=== PATIENT | female | born 2000 ===

== ENCOUNTER 2024-01-14 12:35 | Inpatient (IN) | payer OTHER ==
[~2024-01-14] VITALS: Ht 157.5 cm; Wt 73.5 kg
[2024-01-14 13:24] LABS: AMNISURE ROM TEST POSITIVE
[2024-01-14 14:24] LABS: HEMATOCRIT 40.5 % (35.0-50.0); MCH 31.8 (27-36); MCHC 34.7 g/dl (30-36); MCV 91.9 fl (81-99); RBC 4.4 M/ul (4.3-5.7); RDW 14.1 (10.5-15.0)
[2024-01-14] MEDS ORDERED: fentaNYL citrate 100 MCG/2 ML VIAL IV PRN (14:30)
[2024-01-14] MEDS ORDERED: CALCIUM CARBONATE 500 MG CHEW PO PRN (14:30)
[2024-01-14] MEDS ORDERED: ondansetron HCL 4 MG/2 ML VIAL IV PRN (14:30)
[2024-01-14] MEDS ORDERED: OXYTOCIN/DEXTROSE 5% 20 UNITS/100 ML BAG IV SCH (14:30)
[2024-01-14] MEDS ORDERED: MAGNESIUM HYDROXIDE/AL HYDROX 30 ML CUP PO PRN (14:30)
[2024-01-14] MEDS ORDERED: LACTATED RINGER'S 1,000 ML IV SCH (14:30)
[2024-01-14] MEDS ORDERED: LACTATED RINGER'S 1,000 ML IV PRN (14:30)
[2024-01-14 14:55] LABS: AMPHETAMINES, URINE NEGATIVE (NEGATIVE); BARBITURATES, URINE NEGATIVE (NEGATIVE); BENZODIAZEPINE, URINE NEGATIVE (NEGATIVE); BUPRENORPHINE, URINE NEGATIVE (NEGATIVE); CANNABINOID, URINE NEGATIVE (NEGATIVE); COCAINE, URINE NEGATIVE (NEGATIVE); ECSTASY, URINE NEGATIVE (NEGATIVE); FENTANYL, URINE NEGATIVE (NEGATIVE); METHADONE, URINE NEGATIVE (NEGATIVE); OPIATES, URINE NEGATIVE (NEGATIVE); OXYCODONE, URINE NEGATIVE (NEGATIVE); PHENCYCLIDINE, URINE NEGATIVE (NEGATIVE)
[2024-01-14 15:03] LABS: ABO O; ANTIBODY SCREEN NEGATIVE; RH POSITIVE
[2024-01-14] MEDS ORDERED: miSOPROStoL 25 MCG TAB PV SCH (15:45)
[2024-01-14 16:35] VITALS: BP 121/61
[2024-01-14] MEDS ORDERED: OXYTOCIN/0.9 % SODIUM CHLORIDE 500 ML IV SCH (22:15)
[2024-01-14] MEDS ORDERED: ePHEDrine sulfate 5 MG/ML SYRINGE IV PRN (23:30)
[2024-01-14] MEDS ORDERED: ROPIVACAINE 0.2% 200 ML BAG EPIDURAL SCH (23:30)
[2024-01-14] MEDS ORDERED: LACTATED RINGER'S 2,000 ML IV ONE (23:30)
[2024-01-14] MEDS ORDERED: LACTATED RINGER'S 500 ML IV PRN (23:30)
[2024-01-15] MEDS ORDERED: OXYTOCIN/0.9 % SODIUM CHLORIDE 500 ML IV SCH ×2 (00:45→05:00)
[2024-01-15] MEDS ORDERED: CEFAZOLIN SODIUM 2 GM/20 ML SYR ONE (03:26)
[2024-01-15] MEDS ORDERED: LIDOCAINE 2% W/ EPI 1:200,000 20 ML SDV ONE (03:41)
[2024-01-15] MEDS ORDERED: DEXAMETHASONE SOD PHOS 4 MG/ML VIAL ONE (03:41)
[2024-01-15] MEDS ORDERED: OXYTOCIN 10 UNITS/ML VIAL ONE (03:41)
[2024-01-15] MEDS ORDERED: MORPHINE SULFATE 1 MG/ML VIAL ONE (03:41)
[2024-01-15] MEDS ORDERED: CEFAZOLIN SODIUM 2 GM/20 ML SYR IV ONE (03:45)
[2024-01-15] MEDS ORDERED: ondansetron HCL 4 MG/2 ML VIAL ONE (03:50)
[2024-01-15] MEDS ORDERED: Ropivacaine HCl 0.5% 30 ML VIAL ONE (03:54)
[2024-01-15] MEDS ORDERED: SODIUM CHLORIDE 0.9% 20 ML IV ONE ×3 (03:54→04:44)
[2024-01-15] MEDS ORDERED: dexmedeTOMIDine HCl 200 MCG/2 ML VIAL ONE (03:54)
[2024-01-15] MEDS ORDERED: PHENYLEPHRINE HCL 10 MG/ML VIAL ONE (04:03)
[2024-01-15] MEDS ORDERED: ePHEDrine sulfate 50 MG/ML AMP ONE (04:05)
[2024-01-15] MEDS ORDERED: AZITHROMYCIN 500 MG in DEXTROSE 5% 250 ML IV ONE (04:15)
[2024-01-15] MEDS ORDERED: AZITHROMYCIN/DEXTROSE 500 MG/250 ML BAG ONE (04:36)
[2024-01-15] MEDS ORDERED: ondansetron HCL 4 MG/2 ML VIAL IV PRN ×2 (04:45→05:00)
[2024-01-15] MEDS ORDERED: HYDROmorphone HCL 1 MG/ML SYR IV PRN (04:45)
[2024-01-15] MEDS ORDERED: NALOXONE HCL 0.4 MG SYR IV PRN (04:45)
[2024-01-15] MEDS ORDERED: KETOROLAC TROMETHAMINE 30 MG/ML VIAL IV PRN (04:45)
[2024-01-15] MEDS ORDERED: diphenhydrAMINE HCL 50 MG/ML VIAL IV PRN (04:45)
[2024-01-15] MEDS ORDERED: LACTATED RINGER'S 1,000 ML IV SCH (04:57)
[2024-01-15] MEDS ORDERED: bisacodyL 10 MG SUPP PR PRN (05:00)
[2024-01-15] MEDS ORDERED: METOCLOPRAMIDE HCL 10 MG/2 ML SDV IV PRN (05:00)
[2024-01-15] MEDS ORDERED: HYDROCODONE/ACETA 5/325 TAB PO PRN (05:00)
[2024-01-15] MEDS ORDERED: OXYCODONE HCL 5 MG TAB PO PRN (05:00)
[2024-01-15] MEDS ORDERED: PROCHLORPERAZINE EDISYLATE 10 MG/2 ML VIAL IV PRN (05:00)
[2024-01-15] MEDS ORDERED: OXYCODONE/APAP 5/325 TAB PO PRN (05:00)
[2024-01-15] MEDS ORDERED: PROMETHAZINE HCL 25 MG TAB PO PRN (05:00)
[2024-01-15] MEDS ORDERED: PROMETHAZINE HCL 25 MG SUPP PR PRN (05:00)
--- NOTE | 2024-01-15 05:24 | NUR ---
01/15/24 0524 Sindhu Carrera 0501- PT ARRIVES TO [facility] RM 101 VIA BED. PT IS A&O AND REPORTS NO PAIN OR NAUSEA AT THIS TIME. PT ON RA W/O2 >90% VIA CONT PULSE OX. SCD'S IN PLACE. LOGAN DRAINING TO GRAVITY. IV WNL, INTACT, FLUIDS INFUSING AT THIS TIME. FBC RN IN ROOM. REPORT RECEIVED FROM JOSE PEREZ AT BEDSIDE. PT MOTHER AND BABY FATHER IN ROOM.
[2024-01-15] MEDS ORDERED: SIMETHICONE 125 MG TABLET CHEWABLE PO SCH (07:00)
[2024-01-15] MEDS ORDERED: KETOROLAC TROMETHAMINE 30 MG/ML VIAL IV SCH (08:00)
[2024-01-15] MEDS ORDERED: SENNOSIDES/DOCUSATE 1 EA TAB PO SCH (09:00)
[2024-01-15] MEDS ORDERED: ENOXAPARIN SODIUM 40 MG/0.4 ML SYR SUB-Q SCH (12:00)
[2024-01-16] MEDS ORDERED: IBUPROFEN 600 MG TAB PO SCH (02:00)
[2024-01-16 05:43] LABS: HEMOGLOBIN 7.6 g/dL (12.0-18.0); MCH 31.3 (27-36); MCHC 33.2 g/dl (30-36); MCV 94.1 fl (81-99); RBC 2.44 M/ul (4.3-5.7)
--- NOTE | 2024-01-16 07:14 | PR ---
[facility] [address] [facility] [place], [place] [address] Signed PP Progress Notes Datetime Report Generated by CPN: 01/16/2024 07:14 SUBJECTIVE: [id number] Pain: Within Normal Limits Nausea/Vomiting: Denies Flatus: Yes Bowel Movement: No Vital Signs: [id number] Vital Signs: Reviewed; Within Normal Limits Cardiovascular: Normal Respiratory: Normal Abdomen/Uterus: Normal Lochia: Normal Vulva/Perineum: Not Done Breasts: Not Done CVA Tenderness: Normal Extremities: Normal Incision: Normal Progress: Normal Exam Comments: Fundus firm U-2 nontender. Incision healing well. IMPRESSION/PLAN/PROCEDURES: [id number] Impression: Normal Progression Plan: Continue Present Management Progress Notes: Doing well. Ambulating, voiding, and tolerating full diet. Pain and lochia minimal. Incision healing well. Anticipate d/c home tomorrow. Signing Physician: Fariba Bowen DO Copies: ~ *Electronically Signed* 01/16/2414 FARIBA BOWEN (DANGELO) DO PATIENT NAME: RUSSELL SWARTZLI PROGRESS NOTE DATE OF : 02 PHYSICIAN: FARIBA BOWEN (DANGELO) DO RPT #: [id number] REPORT IS CONFIDENTIAL AND NOT TO BE RELEASED WITHOUT AUTHORIZATION
[2024-01-16 08:47] LABS: IS CROSSMATCH COMPATIBLE
[2024-01-16 08:48] LABS: ABO O; RH POSITIVE
--- NOTE | 2024-01-16 10:17 | PR ---
[facility] [address] [place], [place] [address] Signed PP Progress Notes Datetime Report Generated by CPN: 01/16/2024 10:17 SUBJECTIVE: [id number] Pain: Within Normal Limits Nausea/Vomiting: Denies Flatus: Yes Bowel Movement: No Vital Signs: [id number] Vital Signs: Reviewed Notable Details: No tachycardia, good urine output Cardiovascular: Normal Respiratory: Normal Abdomen/Uterus: Normal Lochia: Normal Vulva/Perineum: Not Done Breasts: Not Done CVA Tenderness: Normal Extremities: Normal Incision: Normal Progress: Normal Exam Comments: Fundus firm U-2 normal postoperative tenderness as anticipated. No rebound or guarding IMPRESSION/PLAN/PROCEDURES: [id number] Impression: Normal Progression Other Impression: postoperative anemia Plan: Continue Present Management Procedures: Transfusion Progress Notes: Pt seen and examined. Notable drop in hgb in AM labs. Pt w/ some symptomatic lightheadedness w/ sitting / standing. Good urine output w/ clear urine. Exam benign. Transfuse 2 u PRBC now and will continually reassess. All questions answered. Signing Physician: Fariba Bowen DO Copies: ~ *Electronically Signed* 01/16/24 1017 FARIBA BOWEN (DANGELO) DO PATIENT NAME: LIVIA SWARTZ PROGRESS NOTE DATE OF : 02 PHYSICIAN: FARIBA BOWEN (JD) DO RPT #: [id number] REPORT IS CONFIDENTIAL AND NOT TO BE RELEASED WITHOUT AUTHORIZATION
[2024-01-16 12:38] LABS: HEMATOCRIT 27.8 % (35.0-50.0); HEMOGLOBIN 9.4 g/dL (12.0-18.0); MCH 31.2 (27-36); MCHC 33.9 g/dl (30-36); RBC 3.02 M/ul (4.3-5.7); RDW 14.6 (10.5-15.0)
[2024-01-16 12:53] LABS: PARTIAL THROMBOPLASTIN TIME 29.5 Sec (22.9-41.3)
[2024-01-16 12:54] LABS: INR 1.03 (0.80-1.30); PROTIME 12.8 Sec (11.2-14.2)
[2024-01-16 12:58] LABS: ALBUMIN 2.2 g/dL (3.4-5.0); ALBUMIN/GLOBULIN RATIO 0.73 (1.1-2.4); BILIRUBIN, TOTAL 0.5 ng/dL (0.2-1.0); BUN/CREATININE RATIO 9.67 (6.0-28.6); CALCIUM 7.9 mg/dL (8.5-10.1); CREATININE, SERUM 0.62 mg/dL (0.55-1.02); PROTEIN, TOTAL 5.2 g/dL (6.4-8.2)
--- NOTE | 2024-01-16 14:56 | PR ---
[facility] [address] [place], [place] [address] Signed PP Progress Notes Datetime Report Generated by ULISSES: 01/16/2024 14:56 SUBJECTIVE: [id number] Pain: Abnormal Nausea/Vomiting: Denies Flatus: Yes Bowel Movement: No Vital Signs: [id number] Vital Signs: Reviewed; Within Normal Limits Notable Details: No tachycardia, good urine output Cardiovascular: Normal Respiratory: Normal Abdomen/Uterus: Abnormal Lochia: Normal Vulva/Perineum: Not Done Breasts: Not Done CVA Tenderness: Normal Extremities: Normal Incision: Normal Progress: Normal Exam Comments: Fundus firm. Abd w/ increasing or unchanged discomfort IMPRESSION/PLAN/PROCEDURES: [id number] Impression: Normal Progression Other Impression: Postoperative hematoma Plan: Continue Present Management Other Plans: To OR for Procedures: Transfusion Progress Notes: Pt seen and examined. 14.6 x 11 x 7.5cm rectus sheath hematoma on CT. Unchanged / unimproved pain. Vital signs stable. Good urine output continues. Reviewed labs; Hgb improved w/ transfusion; normal fibrinogen and coags. Normal CMP. Will proceed to OR for evacuation of abdominal wall hematoma. Reviewed w/ anesthesia. Reviewed w/ pt and all questions answered. Pt understands and agrees. Consents signed and orders written. Will start second IV. Plan Ancef 2 g IV Signing Physician: Fariba Bowen DO *Electronically Signed* 01/16/24 6716 FARIBA BOWEN (DANGELO) DO PATIENT NAME: LIVIA SWARTZ PROGRESS NOTE DATE OF : 02 PHYSICIAN: FARIBA BOWEN (JD) DO RPT #: [id number] REPORT IS CONFIDENTIAL AND NOT TO BE RELEASED WITHOUT AUTHORIZATION
[2024-01-16] MEDS ORDERED: LIDOCAINE HCL 2% 5 ML SDV ONE (15:12)
[2024-01-16] MEDS ORDERED: FAMOTIDINE 20 MG/ 2 ML VIAL ONE (15:34)
[2024-01-16] MEDS ORDERED: ROCURONIUM BROMIDE 50 MG/5 ML SYR ONE (15:34)
[2024-01-16] MEDS ORDERED: propofoL 200 MG/20 ML VIAL ONE (15:34)
[2024-01-16] MEDS ORDERED: DEXAMETHASONE SOD PHOS 4 MG/ML VIAL ONE ×2 (15:34→22:07)
[2024-01-16] MEDS ORDERED: METOCLOPRAMIDE HCL 10 MG/2 ML SDV ONE (15:34)
[2024-01-16] MEDS ORDERED: fentaNYL citrate 100 MCG/2 ML VIAL ONE (15:34)
[2024-01-16] MEDS ORDERED: KETOROLAC TROMETHAMINE 30 MG/ML VIAL ONE (15:34)
[2024-01-16] MEDS ORDERED: SUGAMMADEX SODIUM 200 MG/2 ML ML ONE (15:34)
[2024-01-16] MEDS ORDERED: SUCCINYLCHOLINE IN 0.9% NACL 200 MG/10 ML SYRINGE ONE (15:34)
[2024-01-16] MEDS ORDERED: ondansetron HCL 4 MG/2 ML VIAL ONE (15:34)
[2024-01-16] MEDS ORDERED: LIDOCAINE HCL 4% 5 ML AMP ONE (15:34)
[2024-01-16] MEDS ORDERED: LACTATED RINGER'S 1,000 ML IV ONE (15:34)
[2024-01-16] MEDS ORDERED: MIDAZOLAM HCL 2 MG/2 ML VIAL ONE (15:34)
[2024-01-16] MEDS ORDERED: CEFAZOLIN SOD 1,000 MG/10 ML VIAL ONE ×2 (15:45)
[2024-01-16] MEDS ORDERED: TRANEXAMIC ACID 1,000 MG/10 ML AMP ONE (15:45)
[2024-01-16] MEDS ORDERED: droPERidol 5 MG/2 ML VIAL ONE (15:52)
[2024-01-16] MEDS ORDERED: fentaNYL citrate 50 MCG/ML SDV ONE ×2 (17:48→18:02)
[2024-01-16] MEDS ORDERED: ACETAMINOPHEN 1,000 MG/100 ML VIAL ONE (17:54)
[2024-01-16] MEDS ORDERED: PROCHLORPERAZINE EDISYLATE 10 MG/2 ML VIAL IV PRN (18:00)
[2024-01-16] MEDS ORDERED: METOCLOPRAMIDE HCL 10 MG/2 ML SDV IV PRN (18:00)
[2024-01-16] MEDS ORDERED: ondansetron HCL 4 MG/2 ML VIAL IV PRN (18:00)
[2024-01-16] MEDS ORDERED: NALOXONE HCL 0.4 MG SYR IV PRN (18:00)
[2024-01-16] MEDS ORDERED: droPERidol 5 MG/2 ML VIAL IV PRN (18:00)
[2024-01-16] MEDS ORDERED: fentaNYL citrate 50 MCG/ML SDV IV PRN (18:00)
[2024-01-16] MEDS ORDERED: MORPHINE SULFATE 10 MG/ML VIAL IV PRN (18:00)
[2024-01-16] MEDS ORDERED: IBLOOD GLUCOSE TEST STRIP 1 EA TEST VI PRN (18:00)
[2024-01-16 18:13] VITALS: BP 108/41
--- NOTE | 2024-01-16 18:47 | NUR ---
01/16/24 1847 Kimberly Maldonado 1718 PT ARRIVED IN PACU NON RESPONSIVE TO NOXIOUS STIMULI WITH OPA IN PLACE. CHIN LIFT HELD BY RN. 1732 PT REACTIVE. OPA REMOVED. 1740 PT C/O ABD PAIN AT INCISION SITE 710. 1745 TC TO ANESTHESIA WITH NEW ORDERS RECEIVED. 1750 FENTANYL 50MCG GIVEN IVP. 1800 ANESTHESIA AT BEDSIDE. OFIRMEV 1 GM GIVEN IVP BY ANESTHESIA. 1806 PT C/O 8/10 INCISIONAL PAIN. FENTANYL 50MCG GIVEN IVP. 1815 PAIN DOWN TO 5/10 AND TOLERABLE PER PT. 1822 TO FBC. REPORT GIVEN TO RN. FAMILY AT BEDSIDE.
[2024-01-16] MEDS ORDERED: SODIUM CHLORIDE 0.9% 100 ML IV ONE (22:08)
[2024-01-16] MEDS ORDERED: BUPIVACAINE HCL 0.5% 10 ML SDV ONE (22:08)
[2024-01-16 22:34] LABS: PROTIME 12.5 Sec (11.2-14.2)
--- NOTE | 2024-01-16 22:53 | PR ---
[facility] [address] [facility] [place], [place] [address] Signed PP Progress Notes Datetime Report Generated by CPN: 01/16/2024 22:52 SUBJECTIVE: [id number] Pain: Within Normal Limits Nausea/Vomiting: Denies Flatus: Yes Bowel Movement: No Vital Signs: [id number] Vital Signs: Reviewed; Within Normal Limits Notable Details: No tachycardia, good urine output Cardiovascular: Normal Respiratory: Normal Abdomen/Uterus: Normal Lochia: Not Done Vulva/Perineum: Not Done Breasts: Not Done CVA Tenderness: Not Done Extremities: Normal Incision: Normal Progress: Normal Exam Comments: Fundus firm U-2 nontender IMPRESSION/PLAN/PROCEDURES: [id number] Impression: Normal Progression Other Impression: Postoperative hematoma Plan: Continue Present Management Other Plans: To OR for Procedures: Transfusion Progress Notes: Pt seen and examined. Doing well. Pain improved. Excellent urine output. Mild tachycardia. Reviewed 2200 labs; improved Hgb and normal coags / fibrinogen. Reviewed clinical progress and intraoperative findings. Pt and mother in room and no questions. Discussed will check labs in AM. Signing Physician: Fariba Bowen DO Copies: ~ *Electronically Signed* 01/16/24 9733 FARIBA BOWEN (DANGELO) DO PATIENT NAME: LIVIA SWARTZ PROGRESS NOTE DATE OF : 02 PHYSICIAN: FARIBA BOWEN (JD) DO RPT #: [id number] REPORT IS CONFIDENTIAL AND NOT TO BE RELEASED WITHOUT AUTHORIZATION
[2024-01-17 06:01] LABS: BASOPHILS 0.2 % (0-2); HEMATOCRIT 32.7 % (35.0-50.0); LYMPHOCYTES 14.5 % (24-44); MCH 30.5 (27-36); MCHC 33.5 g/dl (30-36); MCV 91.1 fl (81-99); MONOCYTES 3.4 % (0-12); NEUTROPHILS 81.9 % (39-80); PLATELET COUNT 198 K/uL (140-440); RBC 3.59 M/ul (4.3-5.7); RDW 14.9 (10.5-15.0)
[2024-01-17] MEDS ORDERED: CEFAZOLIN SODIUM 2 GM/20 ML SYR IV SCH (07:00)
--- NOTE | 2024-01-17 07:56 | PR ---
[facility] [address] [place], [place] [address] Signed PP Progress Notes Datetime Report Generated by CPN: 01/17/2024 07:56 SUBJECTIVE: [id number] Pain: Within Normal Limits Nausea/Vomiting: Denies Flatus: Yes Bowel Movement: No Vital Signs: [id number] Vital Signs: Reviewed Notable Details: Mild tachycardia Cardiovascular: Normal Respiratory: Normal Abdomen/Uterus: Normal Lochia: Normal Vulva/Perineum: Not Done Breasts: Not Done CVA Tenderness: Normal Extremities: Normal Incision: Normal Progress: Normal Exam Comments: Fundus firm U-2 nontender IMPRESSION/PLAN/PROCEDURES: [id number] Impression: Normal Progression Other Impression: Postoperative hematoma Plan: Continue Present Management Other Plans: To OR for Procedures: Transfusion Progress Notes: Pt seen and examined. Doing much better. No lightheadness/dizziness and normal lochia. Pain much improved. "I feel so much better." Hgb 11.0 this AM. well. Noted good urine output and mild tachycardia. Will continue to monitor. Repeat CBC in AM. All questions answered. Anticipate d/c home tomorrow. Signing Physician: Fariba Bowen DO Copies: ~ *Electronically Signed* 01/17/24 0756 FARIBA BOWEN (DANGELO) DO PATIENT NAME: LIVIA SWARTZ PROGRESS NOTE DATE OF : 02 PHYSICIAN: FARIBA BOWEN (JD) DO RPT #: [id number] REPORT IS CONFIDENTIAL AND NOT TO BE RELEASED WITHOUT AUTHORIZATION
[2024-01-17 09:42] LABS: RBC, LEUKOREDUCED 18212407623700X; RBC, LEUKOREDUCED 18212407751900Y
[2024-01-18 07:23] LABS: HEMATOCRIT 27.7 % (35.0-50.0); HEMOGLOBIN 9.3 g/dL (12.0-18.0); MCH 30.6 (27-36); MCHC 33.6 g/dl (30-36); RBC 3.05 M/ul (4.3-5.7); RDW 15.3 (10.5-15.0)
--- NOTE | 2024-01-18 07:23 | PR ---
[facility] [address] [place], [place] [address] Signed PP Progress Notes Datetime Report Generated by CPN: 01/18/2024 07:23 SUBJECTIVE: [id number] Pain: Within Normal Limits Nausea/Vomiting: Denies Flatus: Yes Bowel Movement: Yes Vital Signs: [id number] Vital Signs: Reviewed; Within Normal Limits Notable Details: Mild tachycardia EXAM: Ongoing Cardiovascular: Normal Respiratory: Normal Abdomen/Uterus: Normal Lochia: Normal Vulva/Perineum: Not Done Breasts: Not Done CVA Tenderness: Normal Extremities: Normal Incision: Normal Progress: Normal Exam Comments: Fundus firm U-2 nontender. Abd wall much improved but some postop bruising. Mons edematous IMPRESSION/PLAN/PROCEDURES: [id number] Impression: Normal Progression Other Impression: Postoperative hematoma Plan: Continue Present Management Other Plans: To OR for Procedures: Transfusion Progress Notes: Pt seen and examined. Doing well. Ambulating, voiding, and tolerating full diet. Pain and lochia minimal. Breast and bottle feeding. No fevers/chills or other concerns. Desires d/c home. Reviewed d/c instructions in detail including staple removal in office early next week and d/c meds. All questions answered. Signing Physician: Fariba Bowen DO *Electronically Signed* 01/18/24 0723 FARIBA BOWEN (DANGELO) DO PATIENT NAME: LIVIA SWARTZ PROGRESS NOTE DATE OF : 02 PHYSICIAN: FARIBA BOWEN (JD) DO RPT #: [id number] REPORT IS CONFIDENTIAL AND NOT TO BE RELEASED WITHOUT AUTHORIZATION
--- NOTE | 2024-01-24 08:05 | OR ---
[facility] [address] [place], [place] [address] Signed DATE OF OPERATION: 01/15/2024 SURGEON: Fariba Bowen DO PREOPERATIVE DIAGNOSES: 1. Intrauterine at 37 weeks gestation. 2. Premature rupture of membranes. 3. Non-reassuring heart tracing. 4. Persistent occiput posterior positioning. POSTOPERATIVE DIAGNOSES: 1. Intrauterine at 37 weeks gestation. 2. Premature rupture of membranes. 3. Non-reassuring heart tracing. 4. Persistent occiput posterior positioning. [employer] SALES: Piter Lloyd MD ANESTHESIA: Epidural with postoperative TAP blocks. ESTIMATED BLOOD LOSS: 400 mL. DRAINS: Cruz to gravity. COMPLICATIONS: None. SPECIMEN: Cord blood returned for routine analysis. FINDINGS: Delivery of viable male in the OP position weighing 5 pounds 13 ounces with Apgars of 8 and 9. Normal uterus, tubes, and ovaries. No nuchal, clear amniotic fluid, no evidence of abruption or other placental abnormality. INDICATIONS: Electronically Signed By: FARIBA BOWEN DO (JD) 01/24/24 0805 PATIENT NAME: LIVIA OLIVIER OPERATIVE REPORT DATE OF : 02 REPORT #: [id number] PHYSICIAN: FARIBA BOWEN DO (JD) PCP: NO PRIMARY CARE PHYSICIAN REPORT IS CONFIDENTIAL AND NOT TO BE RELEASED WITHOUT AUTHORIZATION [facility] [address] [place] [id number] Signed Ms. Olivier is a very pleasant 23-year-old, G2, P0, with intrauterine at 37 weeks and 5 days gestation, who presented yesterday with premature rupture of membranes. Cervical ripening was performed and Pitocin was started. Persistent OP position with recurrent late decelerations was noted and remote delivery. A primary low transverse section was recommended. The patient understands and wished to proceed with the procedure. TECHNIQUE: The patient was taken to the OR where a time-out was performed to confirm correct patient, correct procedure. Epidural had previously been placed and was bolused and found to be adequate. A Cruz catheter had previously been inserted. The patient was then prepped and draped in the supine position with a bump on the right hip. Once epidural was found to be adequate, a Pfannenstiel skin incision was made approximately 2-3 cm above the pubic symphysis and carried down to the fascia. The fascia was nicked in the in the midline. Fascial incision was extended bilaterally using curved Justice scissors. The fascia was grasped with Anabel's, elevated, and the underlying rectus muscles dissected off bluntly and sharply. The rectus was divided in the midline bluntly and the peritoneum was entered bluntly. Peritoneal incision was extended cephalad caudad with blunt and sharp dissection. Donavan self-retractor was placed and the lower uterine segment identified. Relatively high station was appreciated. Hysterotomy was performed using a surgical scalpel for clear amniotic fluid. Hysterotomy was extended bilaterally using blunt dissection. The head was then elevated in LOT/LOP position into the maternal abdomen delivered with the assistance of fundal pressure. No nuchal cord or other abnormalities were noted. was vigorous, cried upon delivery and significant caput was appreciated. Delayed cord clamping times approximately 1 minute. was then handed to waiting pediatric team for further care. Cord blood was obtained for routine analysis. The placenta was expressed, intact with a centrally inserted three-vessel cord. The uterus was cleared of any remaining products of conception or clot. Bleeding was very minimal and Pitocin was administered per protocol. Hysterotomy was repaired in 2 layers of 0 Monocryl. The 1st being a running locked layer and the 2nd being a running imbricating layer in the vertical manner. A small amount of oozing was noted just right of the midline. This was made hemostatic with yoltas-gr-cljrd of 0 Monocryl. The pelvis was irrigated, found to be hemostatic. The Donavan self retractor was removed and peritoneum was reapproximated using 2-0 Vicryl in a running nonlocked manner. Rectus was made hemostatic with judicious use of Bovie electrocautery and the rectus muscles were plicated loosely in the midline with #0 Vicryl. The Paloma was applied to the rectus sheath. Fascia was then reapproximated using 0 Vicryl in a running nonlocked manner. Subcu was made hemostatic and irrigated. The subcu was then reapproximated using 3-0 Vicryl in a running nonlocked manner. Skin was reapproximated using surgical jennifer. The uterus was Crede'd for scant amount of blood. The patient remained in the PACU for postoperative TAP blocks. Electronically Signed By: FARIBA HICKMAN) DO DIANA 01/24/24 0805 PATIENT NAME: LIVIA OLIVIER OPERATIVE REPORT DATE OF : 02 REPORT #: [id number] PHYSICIAN: FARIBA BOWEN) PCP: NO PRIMARY CARE PHYSICIAN REPORT IS CONFIDENTIAL AND NOT TO BE RELEASED WITHOUT AUTHORIZATION [address] [address] Signed DO LUDIN Sheehan/MODL /[id number] Copies: ~ Electronically Signed By: FARIBA BOWEN DO (JD) 01/24/24 08 PATIENT NAME: OLIVIERLIVIA OPERATIVE REPORT DATE OF : 02 REPORT #: [id number] PHYSICIAN: FARIBA BOWEN DO (JD) PCP: NO PRIMARY CARE PHYSICIAN REPORT IS CONFIDENTIAL AND NOT TO BE RELEASED WITHOUT AUTHORIZATION
== END 2024-01-18 12:00 | disposition home or self-care (01) | DRG 787 ==
LOC: FBCO 12:35 → FBC 13:37 → FBCO 01-31 08:28
PROVIDERS: ADMIT Obstetrics & Gynecology; ATTEND Obstetrics & Gynecology
PROC: 10D00Z1 Extraction of Products of Conception, Low, Open Approach (ICD-10-PCS; principal; 2024-01-14)
DX: O42.02 Full-term premature rupture of membranes, onset of labor within 24 hours of rupture (principal); D62 Acute posthemorrhagic anemia; O26.899 Other specified pregnancy related conditions, unspecified trimester; R10.9 Unspecified abdominal pain; Z3A.37 37 weeks gestation of pregnancy; Z37.0 Single live birth; Z79.899 Other long term (current) drug therapy; O76 Abnormality in fetal heart rate and rhythm complicating labor and delivery; O90.81 Anemia of the puerperium; O99.893 Other specified diseases and conditions complicating puerperium; R00.0 Tachycardia, unspecified; O90.2 Hematoma of obstetric wound
CPT/HCPCS: 00800; 01961; 36415; 36430; 59025; 74176; 76942; 80053; 80307; 84112; 85018; 85025; 85027; 85384; 85610; 85730; 86850; 86880; 86900; 86901; 86922; A9270; G0463; J0131; J0330; J0456; J0690; J1100; J1650; J1790; J1885; J2001; J2250; J2274; J2371; J2405; J2590; J2704; J2765; J2795; J3010; J3490; J7121; P9016